=== PATIENT | female | born 1955 | race Native Hawaiian/Other Pacific Islander ===

== ENCOUNTER 2016-10-26 07:19 | Day surgery (SDC) | payer OTHER ==
[2016-10-22 09:20] LABS: PLATELET COUNT 452 K/uL (152-353)
[2016-10-22 09:36] LABS: POTASSIUM 3.4 mmol/L (3.6-5.2)
[~2016-10-26] VITALS: Ht 167.6 cm; Wt 63.5 kg
== END 2016-10-26 11:57 | disposition home or self-care (01) ==
LOC: OR 07:19
PROVIDERS: Student in an Organized Health Care Education/Training Program
PROC: 0WUF0JZ Supplement Abdominal Wall with Synthetic Substitute, Open Approach (ICD-10-PCS; principal; 2016-10-26)
DX: K42.0 Umbilical hernia with obstruction, without gangrene (principal)
CPT/HCPCS: 36415; 80053; 85027; C1781; J0132; J0330; J0690; J1100; J1170; J2001; J2250; J2405; J2704; J3010; J3490; S0028